=== PATIENT | female | born 1970 | race Caucasian/White ===

== ENCOUNTER → 2018-11-16 13:50 | Outpatient (CLI) | payer OTHER, SELFPAY ==
[2018-11-16 16:05] LABS: Follicle Stimulating Hormone 39.1 mIU/mL
== END ==
PROVIDERS: Visit Provider Obstetrics & Gynecology
DX: N93.9 Abnormal uterine and vaginal bleeding, unspecified (principal)
CPT/HCPCS: 36415; 83001